=== PATIENT | male | born 1955 | race Caucasian/White ===

== ENCOUNTER 2023-10-23 06:29 | Day surgery (SDC) | payer MEDICARE, SELFPAY ==
[2023-10-23 09:04] VITALS: BMI 32.4
[2023-10-23 09:16] LABS: Glucose - Point of Care 83 mg/dl (70-99)
[2023-10-23 09:18] VITALS: BMI 32.4
[2023-10-23 09:19] VITALS: BP 116/72
[2023-10-23 09:43] LABS: Glucose - Point of Care 99 mg/dl (70-99)
[2023-10-23 11:15] VITALS: BP 116/69
[2023-10-23 11:22] LABS: Glucose - Point of Care 88 mg/dl (70-99)
[2023-10-23 11:30] VITALS: BP 136/72
== END 2023-10-23 11:55 | disposition home or self-care (01) ==
LOC: GI 06:29
PROVIDERS: ATTENDING PHYSICIAN Internal Medicine
DX: Z12.11 Encounter for screening for malignant neoplasm of colon (principal); R19.5 Other fecal abnormalities; K64.8 Other hemorrhoids; K63.5 Polyp of colon
CPT/HCPCS: 45385; 88305; 82962

== ENCOUNTER → 2024-04-28 09:35 | Outpatient (REF) | payer MEDICARE, SELFPAY | LOC: RAD 09:35 | PROVIDERS: ATTENDING PHYSICIAN Specialist; FAMILY PHYSICIAN Internal Medicine | DX: M25.511 Pain in right shoulder (principal) | CPT/HCPCS: 76882 ==

== ENCOUNTER 2024-06-22 06:21 | Day surgery (SDC) | payer MEDICARE, SELFPAY ==
[2024-06-11 09:41] LABS: Blood Urea Nitrogen 13 mg/dl (9-20); Calcium 8.5 mg/dl (8.4-10.2); Carbon Dioxide 29 mmol/L (22-30); Chloride 103 mmol/L (98-107); Glucose 83 mg/dl (70-99); Potassium 4.9 mmol/L (3.5-5.1); Sodium 140 mmol/L (135-145); eGFR > 60.00
[2024-06-11 13:45] VITALS: BMI 30.2
--- NOTE | 2024-06-21 15:27 | PTCARENOTE ---
Abnormal ECG 06/08/[address] Rogers, no further intervention.
[2024-06-22] VITALS (10 sets, daily range): BP systolic 93–126; BP diastolic 61–87; BMI 30.2
[2024-06-22] MEDS: TYLENOL 1000 MG PO (11:30)
[2024-06-22] MEDS: CELEBREX 200 MG PO (11:31)
[2024-06-22] MEDS: NORMOSOL-R/PLASMALYTE-A 1000 IV (11:31)
[2024-06-22 11:36] LABS: Glucose - Point of Care 77 mg/dl (70-99)
--- NOTE | 2024-06-22 11:56 | PTCARENOTE ---
Spoke with [facility] [employer] rep, @ 11: 54 via phone regarding deactivating R [facility] for OR. Rep should arrive around 12:30.
[2024-06-22] MEDS: SUBLIMAZE 50 MCG IV ×3 (15:26→16:09)
[2024-06-22 15:59] LABS: Glucose - Point of Care 95 mg/dl (70-99)
== END 2024-06-22 17:19 | disposition home or self-care (01) ==
LOC: SDS 06:21
PROVIDERS: ATTENDING PHYSICIAN Specialist; FAMILY PHYSICIAN Internal Medicine
PROC: 0LB14ZZ Excision of Right Shoulder Tendon, Percutaneous Endoscopic Approach (ICD-10-PCS; 2024-06-22)
DX: M75.101 Unspecified rotator cuff tear or rupture of right shoulder, not specified as traumatic (principal); M75.41 Impingement syndrome of right shoulder
CPT/HCPCS: 29827; 29823; 36415; 80048; 82962

== ENCOUNTER 2025-04-05 05:55 | Day surgery (SDC) | payer MEDICARE, SELFPAY ==
[2025-03-23 13:39] VITALS: BMI 29.1
[2025-04-05] VITALS (7 sets, daily range): BP systolic 138–155; BP diastolic 80–91; BMI 29.1
[2025-04-05 06:47] LABS: Glucose - Point of Care 98 mg/dl (70-99)
[2025-04-05] MEDS: NORMOSOL-R/PLASMALYTE-A 1000 IV (06:48)
[2025-04-05] MEDS: TYLENOL 1000 MG PO (06:49)
[2025-04-05] MEDS: CELEBREX 200 MG PO (06:49)
[2025-04-05] MEDS: DUONEB 3 ML INH (06:58)
[2025-04-05 07:44] LABS: Glucose - Point of Care 114 mg/dl (70-99)
[2025-04-05] MEDS: DILAUDID 0.25 MG IV (08:02)
[2025-04-05] MEDS: ROXICODONE 5 MG PO (08:43)
== END 2025-04-05 08:54 | disposition home or self-care (01) ==
LOC: SDS 05:55
PROVIDERS: ATTENDING PHYSICIAN Specialist; FAMILY PHYSICIAN Internal Medicine
DX: M75.01 Adhesive capsulitis of right shoulder (principal)
CPT/HCPCS: 23700; 36415; 82962; 93005; 94640

== ENCOUNTER 2025-04-08 16:10 | Emergency (ER) | payer MEDICARE, SELFPAY ==
[2025-04-08 16:20] VITALS: BP 126/82
[2025-04-08 19:15] VITALS: BP 121/89
--- NOTE | 2025-04-08 19:31 | ED.GENMED ---
History of Present Illness
General
Chief Complaint: Musculo-Skeletal Complaint
Time Seen by Provider: 04/08/25 19:08
History of Present Illness
History of Present Illness:
Patient is a 69-year-old male with history of COPD, CAD status post CABG, CHF status post AICD placement, atrial fibrillation on Xarelto presenting to the emergency department with chest pain at his prior CABG site that was completed in 2018 at
[place]. Patient states that he has lost 80 pounds. He has noticed that he feels as if his sutures are poking out of his chest. He saw his marriage counselor last week who stated that there was nothing to do at this time. Patient states that the pain
is more severe. It is reproducible to 3 suture sites. No shortness of breath. The pain is nonexertional. His defibrillator has not went off. He denies any fevers chills redness drainage at the site.
Past History
Past History
ED Past Medical History: Arrthythmia, CAD, CHF, COPD, HTN, Hypercholesterolemia, NIDDM, [place] and Other (PNA, DVT bilateral)
ED Past Surgical History: Cardiac (Open-heart/ pacer/defibrillator), Orthopedic and Other (hernia, tracheostomy)
Social History
Tobacco: Former smoker
Alcohol: None
Drug: None
Personal: Other ()
Living: with family
Employment: Employed
Family History
Family History: Other (Contributory)
Phy Exam
Physical Exam
Physical Exam:
GENERAL: in no acute distress
HEENT: normocephalic, extraocular movements intact
NECK: normal inspection
Chest: Reproducible tenderness at 3 suture sites at the sternum, otherwise incision is well healed with no redness or fluctuance
RESPIRATORY: no respiratory distress, clear to auscultation bilaterally
CARDIOVASCULAR: regular rate and rhythm
EXTREMITIES: non-tender, no edema/swelling
NEUROLOGIC: awake and alert, moves all extremities
SKIN: warm
Course
Orders/Labs/Results
Orders:
Orders
04/08/25 19:29
CR Chest - 2 Views Urgent
Comment:
Reason For Exam: chest pain at CABG site
04/08/25 19:32
Acetaminophen [Tylenol] 650 mg PO NOW STA
Vital Signs
Initial and Last Documented VS:
Initial Vital Signs
Temp Pulse Resp BP Pulse Ox
98.0 F 76 18 126/82 97
04/08/25 16:20 04/08/25 16:20 04/08/25 16:20 04/08/25 16:20 04/08/25 16:20
Last Documented Vital Signs
Temp Pulse Resp BP Pulse Ox
98.0 F 86 18 121/89 95
04/08/25 16:20 04/08/25 19:15 04/08/25 19:15 04/08/25 19:15 04/08/25 19:32
MDM/Problems Addressed
Differential Diagnosis Includes:
Patient is a 6-year-old man presenting to the emergency department with pain at his sutures from his prior CABG completed in 2018. On arrival vitals unremarkable. On exam he does have 3 prominent sutures through his skin that are tender to
palpation. There is no associated signs of skin infection. Concern for complication from the sternotomy/sutures. Given the reproducibility of the pain and the fact that the pain is not exertional and there are no associated symptoms history and
exam not consistent of cardiac etiology or PE or pleural effusion or deeper infection will obtain chest x-ray. Will pain control.
*Pulse Oximetry
SaO2: 95
Oxygen Mode of Delivery: Room air
Patient hypoxic: no
*Critical Care Note
Total Time (30-74mins, 75-104mins- exclusive of procedures): Not Applicable
Update Note
Update Note:
Chest x-ray per my interpretation with no obvious changes in sutures at the sternotomy site. Per the official read his AICD's are obscuring full visualization. There is no concern for infection and so we will hold off on further imaging. Patient
will follow-up with cardiology/PCP for additional outpatient imaging. All questions answered. Patient stable for discharge at this time.
ED Attending Note
-
Portions of this chart may have been created with voice recognition software.� Occasional wrong word or��sound alike� substitutions may have occurred due to the inherent limitations of voice recognition software.
Discharge Plan
Departure
Patient Disposition: Home (Routine Discharge)
Date of Disposition: 04/08/25
Time of Disposition: 20:55
Patient with high blood pressure during this ER visit?: No
Discharge Problem:
Chest pain
Prescriptions:
No Action
trazodone 50 MG tablet
50 mg PO HS
aspirin 81 MG tablet,delayed release (DR/EC)
81 mg PO DAILY
Xarelto 20 MG tablet
20 mg PO HS
pantoprazole 40 mg tablet,delayed release (DR/EC)
40 mg PO DAILY
amitriptyline 25 mg Tablet
25 mg PO HS
acetaminophen 325 mg Tablet
650 mg PO Q4HPRN PRN (Reason: mild pain) Qty: 0 0RF
Mounjaro 2.5 mg/0.5 mL Pen Injector
2.5 mg SC FR
atorvastatin 80 mg Tablet
80 mg PO HS
bumetanide 1 mg Tablet
1 mg PO DAILY
lisinopril 2.5 mg Tablet
2.5 mg PO DAILY
Spiriva Respimat 2.5 mcg/actuation Mist
1 inh INHALATION DAILY PRN (Reason: SOB)
carvedilol 3.125 MG tablet
3.125 mg PO DAILY
[id number]-sxuybrfdhbjlu-lsbwrlso [Excedrin Extra Strength] 250-250-65 mg Tablet
2 tab PO HS PRN (Reason: PAIN)
Jardiance 25 mg Tablet
25 mg PO DAILY
gabapentin 600 mg Tablet
600 mg PO TID
Referrals:
UNKNOWN - PT NOT,INTERVIEWE [Family Provider]
Activity Restrictions/Additional Instructions:
Thank You for choosing [facility].
It was a pleasure meeting you and taking part in your care. We hope for your continued healing and wellness.
You were seen in the Emergency Department today for pain at your prior sternotomy site. Please follow-up with your marriage counselor. You may need additional outpatient imaging.
If you experience fever, worsening of your symptoms, or develop any other new or concerning symptoms, please return to the Emergency Department immediately.
Please see the attached sheet for additional information.
Interventions
Interventions:
*Risk Screen - Suicide Last Done: 04/08/25 16:20
*General Assessment Last Done: 04/08/25 16:20
*Neglect/Abuse Screening Last Done: 04/08/25 16:20
*ED COVID-19 Vaccine History Last Done: 04/08/25 16:20
*ED Influenza Vaccine History Last Done: 04/08/25 16:20
ED-Musculoskeletal Assessment Last Done: 04/08/25 19:23
Discharge Date and Time
Print Language: HAITIAN
[2025-04-08] MEDS: TYLENOL 650 MG PO (19:42)
== END 2025-04-08 21:03 | disposition home or self-care (01) ==
LOC: EMR 16:10
PROVIDERS: EMERGENCY PHYSICIAN Student in an Organized Health Care Education/Training Program
DX: R07.9 Chest pain, unspecified (principal); E11.9 Type 2 diabetes mellitus without complications; I25.810 Atherosclerosis of coronary artery bypass graft(s) without angina pectoris; I48.91 Unspecified atrial fibrillation; I11.0 Hypertensive heart disease with heart failure; I50.9 Heart failure, unspecified; E78.00 Pure hypercholesterolemia, unspecified; I25.2 Old myocardial infarction; J44.9 Chronic obstructive pulmonary disease, unspecified; Z79.01 Long term (current) use of anticoagulants; Z79.82 Long term (current) use of aspirin; Z79.85 Long-term (current) use of injectable non-insulin antidiabetic drugs; Z79.84 Long term (current) use of oral hypoglycemic drugs; Z95.810 Presence of automatic (implantable) cardiac defibrillator; Z95.1 Presence of aortocoronary bypass graft; Z86.718 Personal history of other venous thrombosis and embolism; Z87.891 Personal history of nicotine dependence
CPT/HCPCS: 99283; 71046